=== PATIENT | female | born 1930 | race African-American/Black ===

== ENCOUNTER → 2017-08-09 | Outpatient (CLI) | payer MEDICARE, OTHER ==
[~2017-08-09] MED LIST: ASPIR 8181 MG PO; CIPRO500 MG PO; COZAAR25 MG PO; CRESTOR10 MG PO; CRESTOR40 MG PO; FAMOTIDINE20 MG PO; FLAGYL500 MG PO; GLUCOTROL 10 MG10 MG PO; HUMALOG 75/25 V10 ML SC; HUMALOG100 UNIT/1 SQ; HYZAAR 100-251 EACH PO; IMDUR ER TAB 3030 MG PO; LANTUS SOL100 UNIT/1 SQ; LIPITOR TAB 2020 MG PO; LOSARTAN-HCTZ1 EAC1 PO; OXYBUTYNIN CHLOR5 MG PO; SYNTHROID25 MCG PO; VALIUM 5 MG TAB5 MG PO
== END ==
LOC: KOH-I 10:53
DX: R07.9 Chest pain, unspecified (principal); R91.8 Other nonspecific abnormal finding of lung field
CPT/HCPCS: 71020